=== PATIENT | female | born 1965 | race Caucasian/White ===

== ENCOUNTER → 2024-07-19 10:12 | Outpatient (REF) | payer OTHER, SELFPAY | LOC: HWRAD 10:12 | PROVIDERS: ATTENDING PHYSICIAN Urology; FAMILY PHYSICIAN Family Medicine | DX: R39.89 Other symptoms and signs involving the genitourinary system (principal); N39.3 Stress incontinence (female) (male); N39.41 Urge incontinence; R35.1 Nocturia | CPT/HCPCS: 76770; 76856 ==